=== PATIENT | female | born 1995 | race Caucasian/White ===

== ENCOUNTER 2021-03-10 15:32 | Emergency (ER) | payer MEDICAID ==
[~2021-03-10] VITALS: Ht 160 cm; Wt 60.0 kg
[2021-03-10] MEDS ORDERED: SODIUM CHLORIDE 0.9% 1,000 ML IV ONE (16:15)
[2021-03-10] MEDS ORDERED: ACETAMINOPHEN 325MG TABLET PO PRN (16:15)
[2021-03-10 17:02] LABS: CLARITY URINE CLEAR (CLEAR); COLOR URINE YELLOW (YELLOW); KETONES URINE NEGATIVE (NEGATIVE); LEUKOCYTE ESTERASE URINE NEGATIVE (NEGATIVE); NITRITE URINE NEGATIVE (NEGATIVE); OCCULT BLOOD URINE NEGATIVE (NEGATIVE); PH URINE 7.5 (4.5-8.0); PROTEIN URINE NEGATIVE (NEGATIVE); SPECIFIC GRAVITY URINE 1.017 (1.005-1.030); UROBILINOGEN URINE 0.2 E.U./dL (0.2-1.0)
[2021-03-10 17:04] LABS: BASOPHILS % 0.7 % (0.0-2.0); EOSINOPHILS % 2.2 % (0.0-5.0); HEMATOCRIT. 41.5 % (36.0-48.0); HEMOGLOBIN. 14.9 g/dL (12.0-16.0); MEAN CORPUSCULAR HEMOGLOBIN 35.3 pg (28.0-32.0); MEAN CORPUSCULAR VOLUME 98.4 fL (81.0-99.0); MEAN PLATELET VOLUME 9.3 fl (7.4-10.4); MONOCYTES % 7.3 % (2.0-8.0); NEUTROPHILS % 60.8 % (40.0-76.0); PLATELET 281 x1000/uL (130-400); RED BLOOD CELL COUNT 4.21 mill/uL (4.2-5.4); RED CELL DISTRIBUTION WIDTH 12.9 % (11.6-14.6)
[2021-03-10 17:07] LABS: CHLORIDE 104 mEq/L (98-107)
[2021-03-10] MEDS ORDERED: MORPHINE SULFATE 4 MG/ML CPJ (NOT FOR IM USE) IV SCH (17:15)
[2021-03-10 17:18] LABS: B-HCG QUANTITATIVE < 1 mIU/mL (<3)
[2021-03-10] MEDS ORDERED: ACETAMINOPHEN 325MG TABLET PO NR (19:00)
[2021-03-10 20:21] VITALS: BP 103/73
[2021-03-10] MEDS ORDERED: IOHEXOL-300 100 ML BOTTLE ONE (23:08)
== END 2021-03-10 20:28 | disposition home or self-care (01) ==
LOC: ER 15:32
DX: R10.2 Pelvic and perineal pain (principal); Z88.6 Allergy status to analgesic agent
CPT/HCPCS: 36415; 74177; 76830; 76856; 80053; 81003; 81025; 84702; 85025; 96361; 96374; 99285; J2270; J7030; Q9967; Z7610

== ENCOUNTER 2022-06-12 12:17 | Emergency (ER) | payer MEDICAID, OTHER ==
[~2022-06-12] VITALS: Ht 165.1 cm; Wt 68.0 kg
[2022-06-12 12:42] VITALS: BP 123/78
[2022-06-12] MEDS ORDERED: DIPHENHYDRAMINE 50MG CAPSULE PO ONE (12:45)
[2022-06-12 13:09] LABS: BASOPHILS % 0.3 % (0.0-2.0); EOSINOPHILS % 0.8 % (0.0-5.0); HEMATOCRIT. 37.9 % (36.0-48.0); LYMPHOCYTES % 16.5 % (20.0-50.0); MEAN CORPUSCULAR HEMOGLOBIN 33.9 pg (28.0-32.0); MEAN CORPUSCULAR VOLUME 99.2 fL (81.0-99.0); MEAN PLATELET VOLUME 8.5 fl (7.4-10.4); MONOCYTES % 7.1 % (2.0-8.0); NEUTROPHILS % 75.3 % (40.0-76.0); PLATELET 289 x1000/uL (130-400); RED BLOOD CELL COUNT 3.82 mill/uL (4.2-5.4); RED CELL DISTRIBUTION WIDTH 12.9 % (11.6-14.6)
[2022-06-12 13:17] LABS: CHLORIDE 104 mEq/L (98-107)
[2022-06-12] MEDS ORDERED: DIPH25CA83 MT (14:54)
== END 2022-06-12 15:26 | disposition home or self-care (01) ==
LOC: ER 12:17
DX: L50.9 Urticaria, unspecified (principal); Z88.6 Allergy status to analgesic agent
CPT/HCPCS: 36415; 80048; 80076; 85025; 99283; Q0163

== ENCOUNTER 2022-07-23 14:08 | Observation (INO) | payer OTHER ==
[~2022-07-23] VITALS: Ht 157.5 cm; Wt 77.1 kg
[~2022-07-23 14:08] MED LIST: DIPH25CA83 MT
[2022-07-23] MEDS ORDERED: CITRIC ACID/SODIUM CITRATE SOLN 30ML UDC PO NR (15:30)
[2022-07-23] MEDS ORDERED: LACTATED RINGERS 1,000 ML IV SCH (15:53)
== END 2022-07-23 17:05 | disposition home or self-care (01) ==
LOC: 8EST 14:08 → 8 EST A/PP 14:30
PROVIDERS: ADMIT Obstetrics & Gynecology; ATTEND Obstetrics & Gynecology
DX: O21.2 Late vomiting of pregnancy (principal); O26.893 Other specified pregnancy related conditions, third trimester; R42 Dizziness and giddiness; O99.343 Other mental disorders complicating pregnancy, third trimester; F41.9 Anxiety disorder, unspecified; Z3A.35 35 weeks gestation of pregnancy
CPT/HCPCS: 59025; 76805; 76818; 96360; 96361; G0378; 99281; J7120

== ENCOUNTER 2022-08-28 11:10 | Observation (INO) | payer MEDICAID, OTHER ==
[~2022-08-28] VITALS: Ht 157.5 cm; Wt 79.4 kg
== END 2022-08-28 13:55 | disposition home or self-care (01) ==
LOC: 8 EST LDRP 11:10
PROVIDERS: ADMIT Specialist; ATTEND Specialist
DX: O36.8130 Decreased fetal movements, third trimester, not applicable or unspecified (principal); Z3A.41 41 weeks gestation of pregnancy
CPT/HCPCS: 59025; 76805; 76818; G0378; 99281